=== PATIENT | male | born 2000 | race Two or more races ===

== ENCOUNTER 2023-11-29 03:52 | Emergency (ER) | payer MEDICAID ==
[~2023-11-29] VITALS: Ht 160 cm; Wt 95.5 kg
[2023-11-29 04:01] VITALS: TEMP 98.5
[2023-11-29] MEDS: SODIUM CHLORIDE 0.9% 1,000 ML IV ONE (04:24)
[2023-11-29] MEDS: ONDANSETRON HCL 4 MG/2 ML VIAL IVP ONE (04:25)
[2023-11-29] MEDS: DIPHENOXYLATE/ATROP 2.5-0.025 MG TABLET PO ONE (04:33)
[2023-11-29 04:40] LABS: BASOPHILS % (AUTO) 0.5 % (0.0-2.0); EOSINOPHILS % (AUTO) 0.7 % (1.0-6.0); HEMATOCRIT 44.1 % (41-53); HEMOGLOBIN 15.7 g/dL (13.5-17.5); LYMPHOCYTES # (AUTO) 1.1 K/uL (1.0-4.8); LYMPHOCYTES % (AUTO) 11.5 % (22.0-44.0); MEAN CORPUSCULAR HEMOGLOBIN 34.3 pg (26.0-34.0); MEAN CORPUSCULAR HGB CONC 35.6 G/dL (31.0-37.0); MEAN CORPUSCULAR VOLUME 96 fL (80-100); MONOCYTES # (AUTO) 1.1 K/uL (0.1-1.0); MONOCYTES % (AUTO) 11.7 % (2.0-9.0); NEUTROPHILS # (AUTO) 7.1 K/uL (1.8-7.7); NEUTROPHILS % (AUTO) 75.6 % (40.0-70.0); PLATELET COUNT (AUTO) 231 K/uL (150-450); RED BLOOD CELL COUNT(AUTO) 4.57 MIL/uL (4.50-5.90); RED CELL DISTRIBUTION WIDTH 13.2 % (11.5-14.5); WHITE BLOOD COUNT (AUTO) 9.5 K/uL (4.5-11.0)
[2023-11-29] MEDS ORDERED: ONDA-104 PO (04:57)
[2023-11-29 04:59] LABS: ANION GAP 11 mmol/L (8-16); CALCIUM, TOTAL 8.9 mg/dL (8.8-10.5); CARBON DIOXIDE 27 mmol/L (22-29); CHLORIDE 101 mmol/L (98-107); GLOMERULAR FILTR. RATE CALC > 60 mL/min (>60); GLUCOSE,RANDOM 112 mg/dL (70-110); POTASSIUM 3.7 mmol/L (3.5-5.1); SODIUM SERUM 139 mmol/L (136-145); UREA NITROGEN, BLOOD 14 mg/dL (7-18)
[2023-11-29 05:04] LABS: ALANINE AMINOTRANSFERASE 229 U/L (12-78); ALBUMIN 3.8 g/dL (3.4-5.0); ALKALINE PHOSPHATASE 95 U/L (46-116); ASPARTATE AMINOTRANSFERASE 67 U/L (15-37); BILIRUBIN,TOTAL 0.8 mg/dL (0.1-1.0); LIPASE 17 U/L (16-77); TOTAL PROTEIN, SERUM 7.8 g/dL (6.4-8.2)
[2023-11-29 05:24] VITALS: BP 137/75; PULSE 95; RESP 20
== END 2023-11-29 05:38 | disposition home or self-care (01) ==
LOC: EMS 03:54
DX: A08.4 Viral intestinal infection, unspecified (principal); R19.7 Diarrhea, unspecified; R11.0 Nausea; R10.9 Unspecified abdominal pain
CPT/HCPCS: 99283; 96374; 96361; 80053; 83690; 85025; 36415; J2405; J7030